=== PATIENT | male | born 1945 | race Caucasian/White ===

== ENCOUNTER 2024-01-29 09:13 | Inpatient (IN) | payer MEDICARE, OTHER ==
[2024-01-29] MEDS: Albuterol/Ipratropium 3.0-0.5 MG/3 ML Neb Soln NEB ONE (10:50)
[2024-01-29 10:57] LABS: MEAN CORPUSCULAR HEMOGLOBIN 35.5 pg (27.0-34.0); MEAN CORPUSCULAR HGB CONC 34.9 g/dL (33.0-35.0); MEAN CORPUSCULAR VOLUME 101.9 fL (80-100); PLATELET COUNT,PLT 384 10^3/uL (150-450); RED BLOOD CELL COUNT 4.22 10^6/uL (4.6-6.2); WHITE BLOOD CELL COUNT,WBC 21.6 10^3/uL (5.0-10.0)
[2024-01-29] MEDS: Ketorolac 30 MG/ML SDV IVPUSH ONE (11:01)
[2024-01-29] MEDS: Acetaminophen 500 MG Tab PO ONE (11:01)
[2024-01-29 11:13] LABS: BASOPHILS PERCENT AUTO 0.1 % (0.0-1.0); LYMPHOCYTES PERCENT AUTO 4.3 % (20.5-50.1); MONOCYTES PERCENT AUTO 8.3 % (2-8); NEUTROPHILS PERCENT AUTO 87.3 % (42.2-75.2)
[2024-01-29 11:19] LABS: LACTIC ACID 2.3 mmol/L (0.4-2.0)
[2024-01-29 11:25] LABS: ALANINE AMINOTRANSFERASE,ALT 27 U/L (16-63); ALBUMIN 2.9 g/dL (3.4-5.0); ALKALINE PHOSPHATASE 118 U/L (46-116); ANION GAP 10.1 mEq/L (7-13); ASPARTATE AMNIOTRANSFERASE,AST 23 U/L (15-37); BLOOD UREA NITROGEN,BUN 20 mg/dL (7-18); BUN/CREATININE RATIO 20.4 (No establ ref range); CARBON DIOXIDE,CO2 31 mmol/L (21-32); CHLORIDE,CL 95 mmol/L (98-107); CREATININE 0.98 mg/dL (0.70-1.30); EST CRCL DRUG DOSING (CG) 56.05 mL/min; GLUCOSE RANDOM 137 mg/dL (70-99); POTASSIUM,K 4.1 mmol/L (3.5-5.1); PROTEIN TOTAL,TP 7.5 g/dL (6.4-8.2); SODIUM,NA 132 mmol/L (136-145)
[2024-01-29 11:30] LABS: A/G RATIO 0.63; ESTIMATED GFR 79 mL/min (>=60)
[2024-01-29 11:33] LABS: CALCIUM 9.2 mg/dL (8.5-10.1)
[2024-01-29 11:49] LABS: C-REACTIVE PROTEIN > 25.00 ng/dL (<=0.50)
[2024-01-29 11:50] LABS: BAND PERCENT MAN 1 %; SEG NEUTROPHILS PERCENT MAN 90 % (42-75)
[2024-01-29 11:51] LABS: LYMPHOCYTES PERCENT MAN 3 % (20-50); MONOCYTES PERCENT MAN 6 % (2-8)
[2024-01-29] MEDS: Sodium Chloride 0.9% 1,000 ML IV ONE ×2 (12:05→14:52)
[2024-01-29] MEDS: Piperacillin/Tazobactam 4.5 GM in Sodium Chloride 0.9% 100 ML IV ONE (12:05)
[2024-01-29] MEDS ORDERED: Ondansetron 4 MG Tab.DIS PO PRN (12:46)
[2024-01-29] MEDS ORDERED: Docusate Sodium 100 MG Cap PO PRN (12:46)
[2024-01-29] MEDS ORDERED: Naloxone 2 MG/2 ML Syringe IVPUSH PRN (12:46)
[2024-01-29 13:22] LABS: INR 1.1 (0.9-1.2); MAGNESIUM 2.2 mg/dL (1.8-2.4); PHOSPHORUS 2.7 mg/dL (2.6-4.7); PROTHROMBIN TIME 11.1 SEC (9.0-12.0)
[2024-01-29] MEDS: Albuterol 0.083% 2.5 MG/3 ML Neb Soln NEB PRN (15:11)
[2024-01-29] MEDS: Lactated Ringers 1,000 ML IV SCH (17:24)
[2024-01-29] MEDS: Budesonide 0.5 MG/2 ML Neb Susp NEB SCH (17:28)
[2024-01-29] MEDS: Albuterol/Ipratropium 3.0-0.5 MG/3 ML Neb Soln NEB SCH (17:28)
[2024-01-29] MEDS: Piperacillin/Tazobactam 4.5 GM in Sodium Chloride 0.9% 100 ML IV SCH (19:36)
[2024-01-29] MEDS: Morphine 2 MG/ML SYRINGE IVPUSH PRN (22:40)
[2024-01-30 06:38] LABS: HEMATOCRIT 40.3 % (40.0-54.0); HEMOGLOBIN 13.1 g/dL (14.0-18.0); MEAN CORPUSCULAR HEMOGLOBIN 34.4 pg (27.0-34.0); MEAN CORPUSCULAR HGB CONC 32.5 g/dL (33.0-35.0); MEAN CORPUSCULAR VOLUME 105.8 fL (80-100); PLATELET COUNT,PLT 343 10^3/uL (150-450); RED BLOOD CELL COUNT 3.81 10^6/uL (4.6-6.2)
[2024-01-30 06:46] LABS: BASOPHILS PERCENT AUTO 0.1 % (0.0-1.0); EOSINOPHILS PERCENT AUTO 0.6 % (1.0-3.0); LYMPHOCYTES PERCENT AUTO 2.4 % (20.5-50.1); MONOCYTES PERCENT AUTO 10.5 % (2-8); NEUTROPHILS PERCENT AUTO 86.4 % (42.2-75.2)
[2024-01-30 06:56] LABS: ALBUMIN 2.4 g/dL (3.4-5.0); ANION GAP 10.8 mEq/L (7-13); BILIRUBIN TOTAL 0.7 mg/dL (0.2-1.0); BUN/CREATININE RATIO 18.1 (No establ ref range); CALCIUM 8.3 mg/dL (8.5-10.1); CREATININE 0.94 mg/dL (0.70-1.30); EST CRCL DRUG DOSING (CG) 56.28 mL/min; POTASSIUM,K 3.8 mmol/L (3.5-5.1); PROTEIN TOTAL,TP 6.5 g/dL (6.4-8.2)
[2024-01-30 07:01] LABS: A/G RATIO 0.59
[2024-01-30 07:16] LABS: BAND PERCENT MAN 2 %; EOSINOPHILS PERCENT MAN 2 % (1-3); LYMPHOCYTES PERCENT MAN 3 % (20-50); MONOCYTES PERCENT MAN 12 % (2-8); SEG NEUTROPHILS PERCENT MAN 81 % (42-75)
[2024-01-30] MEDS: Enoxaparin 40 MG/0.4 ML Syringe SUBCUT SCH (10:19)
[2024-01-30] MEDS: VANCOmycin 1.5 GM/300 ML 300 ML IV SCH (14:20)
[2024-01-30] MEDS: Furosemide 20 MG/2 ML VIAL IVPUSH ONE (14:21)
[2024-01-30] MEDS: methylPREDNISolone Sodium Succinate 40 MG/1 ML SDV IVPUSH SCH (19:12)
[2024-01-30] MEDS: oxyCODONE 5 MG Tab PO PRN (19:39)
[2024-01-30] MEDS ORDERED: Albuterol/Ipratropium 3.0-0.5 MG/3 ML Neb Soln NEB SCH (22:00)
== END 2024-01-30 21:09 | DRG 871 ==
LOC: DL.ED 09:13 → DL.MS 12:42
PROVIDERS: ADMIT Internal Medicine; ATTEND Internal Medicine
DX: A41.9 Sepsis, unspecified organism (principal); M72.6 Necrotizing fasciitis; L03.114 Cellulitis of left upper limb; J44.9 Chronic obstructive pulmonary disease, unspecified; Z87.891 Personal history of nicotine dependence; Z79.52 Long term (current) use of systemic steroids; Z99.81 Dependence on supplemental oxygen; Z79.899 Other long term (current) drug therapy
CPT/HCPCS: 36415; 71045; 80053; 83605; 83735; 84100; 85025; 85610; 86140; 87040 ×2; 93971; 94640; 96365; 96375; 99285; A9270; J1885; J2543; J3370; J3490; J7030; J7050; 80202; 87070; 87081; 87205; 94010; 99223; 99239; J1650; J1940; J2270; J2919; J3372; J7120; J7613-GY; J7620-GY